=== PATIENT | female | born 1960 | race Two or more races ===

== ENCOUNTER 2018-03-09 08:02 | Outpatient (CLI) | payer OTHER | END 2018-03-09 08:13 | disposition home or self-care (01) | LOC: LAB 08:02 | DX: E03.8 Other specified hypothyroidism (principal) ==

== ENCOUNTER → 2018-10-09 09:12 | Outpatient (CLI) | payer OTHER | END | disposition home or self-care (01) | LOC: LAB 09:12 | DX: E78.2 Mixed hyperlipidemia (principal); E11.9 Type 2 diabetes mellitus without complications ==

== ENCOUNTER 2019-05-10 07:05 | Outpatient (CLI) | payer OTHER | END 2019-05-10 07:25 | disposition home or self-care (01) | LOC: LAB 07:05 | DX: E03.8 Other specified hypothyroidism (principal); K76.0 Fatty (change of) liver, not elsewhere classified ==

== ENCOUNTER → 2019-08-11 06:15 | Outpatient (CLI) | payer OTHER | END | disposition home or self-care (01) | LOC: LAB 06:15 | DX: E11.9 Type 2 diabetes mellitus without complications (principal); I10 Essential (primary) hypertension; E03.8 Other specified hypothyroidism; E78.2 Mixed hyperlipidemia; M81.0 Age-related osteoporosis without current pathological fracture ==